=== PATIENT | female | born 1950 | race Caucasian/White ===

== ENCOUNTER → 2017-01-17 | Outpatient (CLI) | payer BC ==
[~2017-01-17] MED LIST: KENALOG-40 IM ONE; LIDOCAINE 2% VIAL SQ ONE
--- NOTE | 2017-01-17 12:41 | DIREP ---
PROCEDURE:FLUOROSCOPIC GUIDANCE NEEDLE PLACEMENT COMPARISON:None. INDICATIONS:OA RIGHT HIP, 0.2 FLUORO TIME, 3.64 mGy TECHNIQUE:Right hip steroid injection was performed in the usual manner. The procedure was explained in detail to the patient, including the associated risks, benefits and alternatives. All of her questions and concerns were addressed. The patient expressed desire to proceed. Informed written consent was obtained. The superior aspect of the right femoral head and neck junction was localized under fluoroscopy. The overlying skin was marked, then prepped and draped in the usual sterile fashion. Time out and final verification was performed. Utilizing 2% lidocaine for local anesthesia, a 22 gauge spinal needle was advanced to the osseous cortex of the right superior femoral head and neck junction. After confirmation of intracapsular location utilizing a test dose of 2 cc Isovue-300, a total of 7 cc solution containing 6 cc lidocaine 2% and 1 cc Kenalog 40 was carefully injected into the joint space. The patient tolerated the procedure well. There were no immediate complications. CONCLUSION: 1. Successful right hip steroid injection as above. Dictated by: Amaury Veliz M.D. On 01/17/2017 at 12:43 PM
== END | disposition home or self-care (01) ==
LOC: RAD 10:33
PROVIDERS: ATTEND Orthopaedic Surgery
DX: M16.11 Unilateral primary osteoarthritis, right hip (principal)
CPT/HCPCS: 20610; 77002; J2001; J3301; Q9967

== ENCOUNTER → 2017-04-04 | Outpatient (CLI) | payer BC ==
--- NOTE | 2017-04-05 11:51 | DIREP ---
PROCEDURE:Right hip FLUOROSCOPIC GUIDANCE NEEDLE PLACEMENT COMPARISON:[facility], , FLUOROSCOPIC GUIDANCE NEEDLE PLACEMENT, 01/17/2017, 11:06 AM. INDICATIONS:OA RIGHT HIP, 8.14 mGy, 0.3 second fluoro TECHNIQUE:Fluoroscopy of the right hip was performed. A total of 0.3 seconds of fluoroscopic time utilized. FINDINGS: Patient was counseled lobe with enter risks, benefits, complications, and alternatives to fluoroscopically guided left hip injection. She consented in a written and verbal fashion. The right hip was marked in the prepped and draped in the normal sterile fashion. 25 gauge needle was used to anesthetize the skin and needle tract. A 20 gauge spinal needle was then used to access the left hip joint space. Iodinated contrast agent was used to confirm the positioning. A cocktail of 40 mg of Kenalog and 6 cc of 2% lidocaine with epinephrine more administered. Total fluoroscopic time 0.3 min. Pain before the procedure: 6/10 Pain after the procedure: 0/10 CONCLUSION:Successful fluoroscopically guided right hip injection Dictated by: Oz Durant MD on 04/05/2017 at 11:48 AM
== END | disposition home or self-care (01) ==
LOC: RAD 13:42
PROVIDERS: ATTEND Orthopaedic Surgery
DX: M16.11 Unilateral primary osteoarthritis, right hip (principal)
CPT/HCPCS: 20610; 77002; Q9967

== ENCOUNTER 2017-08-26 00:21 | Inpatient (IN) | payer MEDICARE, OTHER ==
[2017-08-21 10:42] VITALS: BP 140/78
--- NOTE | 2017-08-21 11:01 | PCM.EKG ---
[facility] Test Date: 2017-08-21 Test Time: 10:52:46 Pat Name: JODY BRADLEY Department: Patient ID: [id number] Room: Gender: F Marine Pilot: AWLVNatasha : 1950 Requested By: ALEXIS WANG Order Number: [id number] Reading MD: Ashley Denny Measurements Intervals [place] Rate: 69 P: 79 FL: 118 QRS: 84 QRSD: 82 T: 78 QT: 438 QTc: 469 Interpretive Statements Normal sinus rhythm Nonspecific ST abnormality LVH NONSPECIFIC T ABNORMALITIES, DIFFUSE LEADS Abnormal ECG No previous ECG available for comparison Electronically Signed On 08-26-2017 10:37:14 SHIFTMAN by Ashley Denny Please click the below link to view image of tracing.
[2017-08-21 11:14] LABS: BASOPHIL # 0.1 10^3/uL (0.0-0.1); BASOPHIL % 0.5 % (0.0-0.2); EOSINOPHIL # 0.1 10^3/uL (0.0-0.2); EOSINOPHIL % 0.9 % (0.0-5.0); HEMOGLOBIN 13.4 g/dL (12.0-15.0); LYMPHOCYTES # 2.5 10^3/uL (1.0-4.8); LYMPHOCYTES % 21.3 % (24.0-44.0); MEAN CELL HGB 32.6 pg (26-34); MEAN CELL HGB CONCENTRATION 32.7 g/dL (33-37); MEAN CORP VOLUME 99.8 fL (78-100); MONOCYTES # 0.8 10^3/uL (0.3-0.8); MONOCYTES % 6.6 % (5.0-12.0); NEUTROPHIL # 8.4 10^3/uL (1.8-7.7); NEUTROPHILS % 70.5 % (41.0-85.0); RED CELL DISTRIBUTION WIDTH 14.4 % (11.5-14.5); WHITE BLOOD CELL 11.9 10^3/uL (4.5-11.0)
[2017-08-21 11:39] LABS: CALCIUM 9.2 mg/dL (8.4-10.5); CARBON DIOXIDE 28.4 mmol/L (20.0-32)
[2017-08-26] VITALS (17 sets, daily range): BP systolic 100–165; BP diastolic 60–117
[~2017-08-26] VITALS: Ht 170.2 cm; Wt 54.0 kg
[~2017-08-26 00:21] MED LIST changes: +AMLO1CAP3 PO; +ATOR10TA PO; +HYDR12.53 PO; -KENALOG-40 IM ONE; -LIDOCAINE 2% VIAL SQ ONE; +MELO15TA24 PO; +PARO20TA4 PO
[2017-08-26] MEDS ORDERED: ANCEF ONE (04:58)
[2017-08-26] MEDS ORDERED: NS 100ML 100 ML IV ONE ×2 (05:13→13:20)
[2017-08-26] MEDS ORDERED: TORADOL ONE (06:40)
[2017-08-26] MEDS ORDERED: ZOFRAN ONE (06:40)
[2017-08-26] MEDS ORDERED: ZEMURON IV ONE ×2 (06:40→17:12)
[2017-08-26] MEDS ORDERED: DECADRON ONE (06:40)
[2017-08-26] MEDS ORDERED: SUBLIMAZE ONE (06:41)
[2017-08-26] MEDS ORDERED: DIPRIVAN IV ONE (06:41)
[2017-08-26] MEDS ORDERED: VERSED ONE (06:41)
[2017-08-26] MEDS ORDERED: NEOSTIGMINE ONE (06:41)
[2017-08-26] MEDS ORDERED: DILAUDID ONE (06:41)
[2017-08-26] MEDS ORDERED: LIDOCAINE 2% VIAL ONE (06:42)
[2017-08-26] MEDS ORDERED: NAROPIN 0.5% 5 MG/ML VIAL ONE (06:42)
--- NOTE | 2017-08-26 11:05 | PCM.HP ---
History of Present Illness Reason for Visit: Right hip pain History of Present Illness 67yo female complains of right hip pain for 1-2 years, and getting progressively worse. She complains of pain and painful crepitation with household ambulation, and night pain. She is very limited in her daily activities. She has tried cortisone injections with temporary relief. She has been taking Tylenol, Mobic, and Tylenol 4 for the pain. Her xrays do show collapse of femoral head consistent with AVN and severe OA. Past Medical History Cardiac: HTN, Hyperlipidemia Psychiatric: Depression Past Surgical History: Other (Hysterectomy, left bunionectomy) Past Social History Smoke: <1 pack per day Alcohol: occassional Review of Systems Musculoskeletal: leg pain (Right hip pain) Allergies: Coded Allergies: No Known Allergies (Unverified , 08/21/17) Scheduled Amlodipine Besylate/Benazepril (Lotrel 5-40 Mg Capsule), 1 CAP PO DAILY, ( Reported) Atorvastatin 10MG (Lipitor 10MG), 1 TAB PO HS, (Reported) Hydrochlorothiazide (Hydrochlorothiazide), 1 CAP PO DAILY, (Reported) Meloxicam (Meloxicam), 1 TAB PO DAILY, (Reported) Paroxetine Hcl (Paroxetine Hcl), 1 TAB PO HS, (Reported) VTE VTE Risk Total Score: >5 VTE Risk Score VTE Risk: Score 0-1 = Low Risk (Aggressive mobilization; early ambulation; no VTE prophylaxis required) Score 2: Moderate Risk (Intermittent/Pneumatic Compression Device OR Lovenox/Heparin/Coumadin) Score 3-4: High Risk (Intermittent/Pneumatic Compression Device AND Lovenox/Heparin/Coumadin) Score > or =5: Highest Risk (Intermittent/Pneumatic Compression Device AND Lovenox/Heparin/Coumadin) VTE VTE Present on Admission: No Currently receiving anticoagul: No VTE Risk Total Score: >5 Exam Vital Signs Vital Signs Date Time Temp Pulse Resp B/P (MAP) Pulse Ox O2 Delivery O2 Flow Rate FiO2 08/21/17 10:42 97.8 73 18 140/78 (98) 97 Room Air General Appearance: Alert, Oriented X3, Cooperative, No acute distress HEENT: Atraumatic Respiratory: Clear to auscultation, Normal air movement Cardiovascular: Regular rate, Normal S1, Normal S2, No murmurs Abdominal: Normal bowel sounds, Soft, No tenderness, No hepatospenomegaly Extremities: No clubbing, No cyanosis, No edema, Normal pulses, Other (Right hip 80 degrees flexion, 10 degrees internal rotation, 30 degrees external rotation, no shortening) Skin: No rash, No breakdown, No lesions Neuro: Normal gait, Normal speech, Strength at 5/5 X4 ext, Normal tone, Sensation intact, Cranial nerves 3-12 NL, Reflexes 2+ Psych/Mental Status: Mental status NL, Mood NL Assessment/Plan Assessment/Plan Assessment/Plan A: OA right hip P: Right total hip arthroplasty Problems: (1) Osteoarthritis of right hip Status: Chronic ICD Code: M16.11 - Unilateral primary osteoarthritis, right hip SNOMED: 168132906610192 (2) HTN (hypertension) Status: Chronic ICD Code: I10 - Essential (primary) hypertension SNOMED: 62224984 (3) Hyperlipidemia Status: Chronic ICD Code: E78.5 - Hyperlipidemia, unspecified SNOMED: 86298487 Patient History: Bone cancer 33 FATHER, , Age:69 FH: lung cancer 33 FATHER, , Age:71 Hypertension 32 MOTHER, , Age:90 No known health problems G8 BROTHER G8 BROTHER 19 CHILD 19 CHILD 19 CHILD No Family History of: Alzheimer's disease Asthma Cerebrovascular disorder Chronic obstructive pulmonary disease Congestive heart failure Diabetes insipidus Diabetes mellitus Parkinson's disease ALEXIS WANG PAC Aug 26, 2017 11:05
[2017-08-26] MEDS: LACTATED RINGERS 1,000 ML IV SCH ×3 (11:10→16:58)
[2017-08-26] MEDS ORDERED: ANCEF 2 GM in NS 100ML 100 ML IV ONE (11:15)
[2017-08-26] MEDS ORDERED: SODIUM CHLORIDE IR ONE (13:19)
[2017-08-26] MEDS ORDERED: NS 3000ML IRR IR ONE (13:19)
[2017-08-26] MEDS ORDERED: NS 250ML 250 ML IV ONE (13:19)
[2017-08-26] MEDS ORDERED: TRANEXAMIC ACID IV ONE ×2 (13:36→15:57)
[2017-08-26] MEDS ORDERED: LACTATED RINGERS 1,000 ML ONE (13:51)
[2017-08-26] MEDS ORDERED: VENTOLIN IH PRN (17:00)
[2017-08-26] MEDS ORDERED: PHENERGAN IV PRN (17:00)
[2017-08-26] MEDS ORDERED: LACTATED RINGERS 1,000 ML IV SCH (17:00)
[2017-08-26] MEDS ORDERED: BENADRYL IV PRN (17:00)
[2017-08-26] MEDS ORDERED: ZOFRAN IV PRN (17:00)
[2017-08-26] MEDS ORDERED: REGLAN IV PRN (17:00)
[2017-08-26] MEDS ORDERED: CEPACOL SORE THROAT LOZENGE MM PRN (17:00)
[2017-08-26] MEDS ORDERED: DILAUDID IV PRN (17:00)
[2017-08-26] MEDS ORDERED: AMBIEN PO PRN (17:00)
--- NOTE | 2017-08-26 17:18 | DIREP ---
PROCEDURE:XRAY HIP MIN 2VW-RT COMPARISON:None. INDICATIONS:postop FINDINGS: BONES:Total right hip arthroplasty. No visible fracture. JOINTS:Normal. SOFT TISSUES:Lateral skin karoline. Surgical drain. Soft tissue gas. OTHER:No additional findings. CONCLUSION:Changes of recent right hip arthroplasty. Dictated by: Abdi Lehman M.D. on 08/26/2017 at 05:17 PM
--- NOTE | 2017-08-26 17:32 | PRM.PN ---
Subjective Subjective Date: Aug 26, 2017 Time: 17:31 Subjective Awake and alert In RR VSS NVM+ Pain ok Stable Patient History: Bone cancer 33 FATHER, , Age:69 FH: lung cancer 33 FATHER, , Age:71 Hypertension 32 MOTHER, , Age:90 No known health problems G8 BROTHER G8 BROTHER 19 CHILD 19 CHILD 19 CHILD No Family History of: Alzheimer's disease Asthma Cerebrovascular disorder Chronic obstructive pulmonary disease Congestive heart failure Diabetes insipidus Diabetes mellitus Parkinson's disease VTE VTE Risk Total Score: >5 VTE Risk Score VTE Risk: Score 0-1 = Low Risk (Aggressive mobilization; early ambulation; no VTE prophylaxis required) Score 2: Moderate Risk (Intermittent/Pneumatic Compression Device OR Lovenox/Heparin/Coumadin) Score 3-4: High Risk (Intermittent/Pneumatic Compression Device AND Lovenox/Heparin/Coumadin) Score > or =5: Highest Risk (Intermittent/Pneumatic Compression Device AND Lovenox/Heparin/Coumadin) Review of Systems Musculoskeletal: leg pain (Right hip pain) Allergies: Coded Allergies: No Known Allergies (Unverified , 08/21/17) Scheduled Amlodipine Besylate/Benazepril (Lotrel 5-40 Mg Capsule), 1 CAP PO DAILY, ( Reported) Atorvastatin 10MG (Lipitor 10MG), 1 TAB PO HS, (Reported) Hydrochlorothiazide (Hydrochlorothiazide), 1 CAP PO DAILY, (Reported) Meloxicam (Meloxicam), 1 TAB PO DAILY, (Reported) Paroxetine Hcl (Paroxetine Hcl), 1 TAB PO HS, (Reported) Objective Vitals and I/O Vital Sign - Last 24 Hours 08/26/17 08/26/17 08/26/17 08/26/17 11:00 11:00 12:55 13:00 Temp 97.8 Pulse 96 86 83 Resp 18 B/P (MAP) 165/96 (119) 125/99 (108) 137/78 (97) Pulse Ox 98 94 97 O2 Delivery Room Air Room Air Room Air Room Air 08/26/17 08/26/17 08/26/17 08/26/17 13:04 16:48 16:48 16:53 Temp 98.9 Pulse 76 90 89 Resp 18 18 B/P (MAP) 138/97 (111) 158/92 (114) 158/92 (114) Pulse Ox 97 96 97 O2 Delivery Room Air Nasal Canula Nasal Canula O2 Flow Rate 3 08/26/17 16:58 Pulse 89 Resp 18 B/P (MAP) 152/81 (104) Pulse Ox 97 O2 Delivery Nasal Canula Medication Reconciliation Scheduled Amlodipine Besylate/Benazepril (Lotrel 5-40 Mg Capsule), 1 CAP PO DAILY, ( Reported) Atorvastatin 10MG (Lipitor 10MG), 1 TAB PO HS, (Reported) Hydrochlorothiazide (Hydrochlorothiazide), 1 CAP PO DAILY, (Reported) Meloxicam (Meloxicam), 1 TAB PO DAILY, (Reported) Paroxetine Hcl (Paroxetine Hcl), 1 TAB PO HS, (Reported) Course Blood Pressure Systolic: 152 Blood Pressure Diastolic: 81 Blood Pressure Mean: 104 Assessment/Plan Assessment/Plan Patient History: Bone cancer 33 FATHER, , Age:69 FH: lung cancer 33 FATHER, , Age:71 Hypertension 32 MOTHER, , Age:90 No known health problems G8 BROTHER G8 BROTHER 19 CHILD 19 CHILD 19 CHILD No Family History of: Alzheimer's disease Asthma Cerebrovascular disorder Chronic obstructive pulmonary disease Congestive heart failure Diabetes insipidus Diabetes mellitus Parkinson's disease BROOKS LEONARDO MD Aug 26, 2017 17:32
[2017-08-26] MEDS: ULTRAM PO PRN (19:08)
[2017-08-26] MEDS: ULTRAM PO SCH (20:00)
[2017-08-26 20:18] LABS: HEMOGLOBIN 10.4 g/dL (12.0-15.0); MEAN CELL HGB 32.3 pg (26-34); MEAN CELL HGB CONCENTRATION 31.3 g/dL (33-37); MEAN CORP VOLUME 103.1 fL (78-100); MEAN PLATELET VOLUME 8.6 fL (7.8-11.0); RED CELL DISTRIBUTION WIDTH 14.4 % (11.5-14.5); WHITE BLOOD CELL 20.7 10^3/uL (4.5-11.0)
[2017-08-26] MEDS ORDERED: MORPHINE SULFATE ONE (21:03)
[2017-08-26] MEDS: CELEBREX PO SCH (21:05)
[2017-08-26] MEDS: MORPHINE SULFATE IV PRN (21:06)
[2017-08-26] MEDS: ANCEF 2 GM/D5W 50ML IV SCH (21:07)
--- NOTE | 2017-08-26 21:26 | OPH ---
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 OPERATIVE PROCEDURE: Right total hip arthroplasty using a Medacta AMIS, size 54 acetabular cup, size 2 AMIS stem cemented, 36 mm ceramic head, making it a [id number] total hip arthroplasty. SURGEON: Curt Hawthorne MD ANESTHESIA: General endotracheal BLOOD LOSS: 500 mL DESCRIPTION OF INDICATIONS: The patient is a 67-year-old female. She has had right hip pain for the last 2 years and getting progressively worse. She complained of severe pain and crepitation with just household ambulation. She also had severe night pain and was very limited in her daily activities. She has been on Mobic as well as Tylenol for the pain. The patient's exam showed that she had only 80 degrees of flexion of the hip. She had 10 degrees of internal rotation and 30 degrees of external rotation. There was very severe pain with any attempts of range of motion. The patient's x-rays showed that she has had a collapse of the femoral head superiorly and laterally with stage IV, DJD. She was taken to the operating room today for a right total hip arthroplasty for pain relief. DESCRIPTION OF PROCEDURE: This patient was placed on the operating table in the supine position. General endotracheal anesthesia was induced without difficulty. The patient had the right foot and ankle well padded and placed in the traction boot. The right foot and ankle were then attached to the traction unit. The patient had the right lower extremity sterilely prepped and draped. An anterior incision was made about the hip. The incision was taken through the skin and the subcutaneous tissues. Bleeding was controlled with cautery. The tensor fascia was opened in line with the skin incision. The muscle belly was then retracted posteriorly and laterally. The rectus fascia was opened and the rectus muscle was retracted medially. The patient then had the circumflex vessels identified and coagulated with the Aquamantys device. The fatpad over the anterior capsule was then opened and retracted proximally and laterally. A femoral neck cut was then made with a power saw and the head was removed with a corkscrew device. The labrum was then excised. The fovea was cleared of any soft tissue and any bleeding was controlled with the Aquamantys device. The posterior capsule and the piriformis tendon were released. The acetabulum was then sequentially reamed up to a size 54. The patient had a 54 trial placed. The general alignment was felt to be satisfactory, however, I felt the need for additional stabilization, so we put a single cancellous screws superiorly and posteriorly. Intraoperative C-arm views showed satisfactory alignment of the acetabulum and satisfactory screw positioning. The patient then had the central hole in the acetabular component filled with a small screw. The trial liner was then placed in the acetabular component. The hip was placed in maximal external rotation and hyperextension. The canal was opened with a curette. The opening rasp was then used to open the proximal femur. We sequentially rasped the femur up to a size 2. The patient then had a trial reduction done with a 2 femur; initially a short neck and then a neutral neck length; the neutral neck length had better stability. The C-arm views showed what appeared to be a satisfactory alignment and satisfactory sizing of the components. The trial components were then removed. The acetabular liner was then impacted into position. The patient then had the canal cleared off of any cancellous bone with the irrigating bone brush. A cement restrictor was placed at 13 cm. The canal was then dried and then the cement was introduced. The cement was packed and the stem was cemented into position. The excess cement was then removed with a curette. Once the cement had hardened and the excess cement was removed. The 36 mm neutral neck length head was impacted onto the Mukherjee taper neck. The hip was reduced, and again, there was excellent stability. The patient had the wounds irrigated with Betadine. The capsule was closed with #2 PDS in an interrupted manner, the IT band closed with a #2 PDS barbed in a running manner, the subQ closed with a 2-0 Monocryl in a running manner, and then the skin was closed with karoline. A Prevena dressing was applied. The patient was extubated in the operating room and sent to recovery in a stable condition. Curt Hawthorne MD DR: MELIZA/martin JOB# [id number]
[2017-08-27] VITALS: BP 109/63
[2017-08-27] MEDS ORDERED: ANCEF ONE (03:42)
[2017-08-27] MEDS ORDERED: NS 100ML 100 ML IV ONE (03:43)
[2017-08-27] MEDS: ULTRAM PO SCH ×6 (04:00→19:17)
[2017-08-27] MEDS: ULTRAM PO PRN ×2 (04:04)
[2017-08-27 04:39] VITALS: BP 112/68
[2017-08-27] MEDS: ANCEF 2 GM/D5W 50ML IV SCH ×2 (05:17→14:00)
[2017-08-27 05:52] LABS: HEMOGLOBIN 9.1 g/dL (12.0-15.0); MEAN CELL HGB 32.7 pg (26-34); MEAN CELL HGB CONCENTRATION 32.2 g/dL (33-37); MEAN CORP VOLUME 101.8 fL (78-100); MEAN PLATELET VOLUME 9.4 fL (7.8-11.0); RED CELL DISTRIBUTION WIDTH 14.2 % (11.5-14.5)
[2017-08-27] MEDS: COLACE PO SCH (08:20)
[2017-08-27] MEDS: PEPCID PO SCH (08:21)
[2017-08-27] MEDS: XARELTO PO SCH (08:21)
[2017-08-27] MEDS: CELEBREX PO SCH ×2 (08:21→20:52)
--- NOTE | 2017-08-27 08:31 | PRM.PN ---
Subjective Subjective Date: Aug 27, 2017 Time: 08:30 Subjective Awake and alert Some pain this morning, better with Tramadol Afebrile, VSS H/H 05/09 M-N-V intact Dressing dry and intact Patient History: Bone cancer 33 FATHER, , Age:69 FH: lung cancer 33 FATHER, , Age:71 Hypertension 32 MOTHER, , Age:90 No known health problems G8 BROTHER G8 BROTHER 19 CHILD 19 CHILD 19 CHILD No Family History of: Alzheimer's disease Asthma Cerebrovascular disorder Chronic obstructive pulmonary disease Congestive heart failure Diabetes insipidus Diabetes mellitus Parkinson's disease VTE VTE Risk Total Score: >5 VTE Risk Score VTE Risk: Score 0-1 = Low Risk (Aggressive mobilization; early ambulation; no VTE prophylaxis required) Score 2: Moderate Risk (Intermittent/Pneumatic Compression Device OR Lovenox/Heparin/Coumadin) Score 3-4: High Risk (Intermittent/Pneumatic Compression Device AND Lovenox/Heparin/Coumadin) Score > or =5: Highest Risk (Intermittent/Pneumatic Compression Device AND Lovenox/Heparin/Coumadin) Review of Systems Musculoskeletal: leg pain (Right hip pain) Allergies: Coded Allergies: No Known Allergies (Unverified , 08/21/17) Scheduled Amlodipine Besylate/Benazepril (Lotrel 5-40 Mg Capsule), 1 CAP PO DAILY, ( Reported) Atorvastatin 10MG (Lipitor 10MG), 1 TAB PO HS, (Reported) Hydrochlorothiazide (Hydrochlorothiazide), 1 CAP PO DAILY, (Reported) Meloxicam (Meloxicam), 1 TAB PO DAILY, (Reported) Paroxetine Hcl (Paroxetine Hcl), 1 TAB PO HS, (Reported) Objective Vitals and I/O Vital Sign - Last 24 Hours 08/26/17 08/26/17 08/26/17 08/26/17 11:00 11:00 12:55 13:00 Temp 97.8 Pulse 96 86 83 Resp 18 B/P (MAP) 165/96 (119) 125/99 (108) 137/78 (97) Pulse Ox 98 94 97 O2 Delivery Room Air Room Air Room Air Room Air 08/26/17 08/26/17 08/26/17 08/26/17 13:04 16:48 16:48 16:53 Temp 98.9 Pulse 76 90 89 Resp 18 18 18 B/P (MAP) 138/97 (111) 158/92 (114) 158/92 (114) Pulse Ox 97 96 97 O2 Delivery Room Air Nasal Canula Nasal [place]ula O2 Flow Rate 3 08/26/17 08/26/17 08/26/17 08/26/17 16:58 17:08 17:13 17:18 Temp 98.9 Pulse 89 93 95 92 Resp 18 18 18 18 B/P (MAP) 152/81 (104) 153/117 (129) 137/90 (106) 137/87 (104) Pulse Ox 97 97 94 95 O2 Delivery Nasal Canula Nasal Canula Nasal Canula Nasal Canula 08/26/17 08/26/17 08/26/17 08/26/17 17:23 17:28 17:33 17:38 Temp 98.9 99.4 Pulse 94 86 85 86 Resp 18 18 18 18 B/P (MAP) 158/93 (114) 162/70 (100) 134/77 (96) 162/74 (103) Pulse Ox 96 97 97 97 O2 Delivery Nasal [place]ula Nasal Canula Nasal Canula Nasal Canula 08/26/17 08/26/17 08/26/17 08/26/17 17:43 17:48 20:01 20:21 Temp 98.4 Pulse 81 76 79 Resp 18 18 18 B/P (MAP) 134/68 (90) 134/68 (90) 100/60 (73) Pulse Ox 98 98 94 O2 Delivery Nasal [place] Nasal [place]ula Room Air Nasal Cannula O2 Flow Rate 2.00 08/26/17 08/26/17 08/27/17 08/27/17 20:24 20:25 00:00 02:04 Temp 98.1 Pulse 79 73 Resp 18 15 18 B/P (MAP) 109/63 (78) Pulse Ox 94 97 99 O2 Delivery Nasal Cannula Room Air Nasal Cannula O2 Flow Rate 2.00 08/27/17 04:39 Temp 98.0 Pulse 67 Resp 18 B/P (MAP) 112/68 (83) Pulse Ox 99 O2 Delivery Nasal [place]ula Intake and Output 08/26/17 08/26/17 08/27/17 15:00 23:00 07:00 Intake Total 1100 ml 5475 ml 450 ml Output Total 630 ml 800 ml Balance 1100 ml 4845 ml -350 ml Medication Reconciliation Scheduled Amlodipine Besylate/Benazepril (Lotrel 5-40 Mg Capsule), 1 CAP PO DAILY, ( Reported) Atorvastatin 10MG (Lipitor 10MG), 1 TAB PO HS, (Reported) Hydrochlorothiazide (Hydrochlorothiazide), 1 CAP PO DAILY, (Reported) Meloxicam (Meloxicam), 1 TAB PO DAILY, (Reported) Paroxetine Hcl (Paroxetine Hcl), 1 TAB PO HS, (Reported) Course Blood Pressure Systolic: 112 Blood Pressure Diastolic: 68 Blood Pressure Mean: 83 Assessment/Plan Assessment/Plan Patient History: Bone cancer 33 FATHER, , Age:69 FH: lung cancer 33 FATHER, , Age:71 Hypertension 32 MOTHER, , Age:90 No known health problems G8 BROTHER G8 BROTHER 19 CHILD 19 CHILD 19 CHILD No Family History of: Alzheimer's disease Asthma Cerebrovascular disorder Chronic obstructive pulmonary disease Congestive heart failure Diabetes insipidus Diabetes mellitus Parkinson's disease Plan Continue with PT this morning Recheck CBC tomorrow ALEXIS WANG PAC Aug 27, 2017 08:31
[2017-08-27 08:39] VITALS: BP 101/54
[2017-08-27] MEDS: HYDROCHLOROTHIAZIDE PO SCH (10:30)
[2017-08-27] MEDS: NORVASC PO SCH (11:36)
[2017-08-27] MEDS: LOTENSIN PO SCH (11:37)
[2017-08-27] MEDS ORDERED: MORPHINE SULFATE ONE ×2 (12:32→20:47)
[2017-08-27] MEDS: MORPHINE SULFATE IV PRN ×2 (12:37→21:00)
[2017-08-27 12:41] VITALS: BP 118/64
[2017-08-27 17:35] VITALS: BP 109/50
[2017-08-27 20:49] VITALS: BP 114/52
[2017-08-27] MEDS ORDERED: PAXIL PO SCH (21:00)
[2017-08-27] MEDS ORDERED: LIPITOR PO SCH (21:00)
[2017-08-28] MEDS: ULTRAM PO SCH ×6 (00:08→16:00)
[2017-08-28 00:26] VITALS: BP 127/65
[2017-08-28] MEDS: ULTRAM PO PRN ×4 (04:05→16:53)
[2017-08-28 04:19] VITALS: BP 127/54
[2017-08-28 05:46] LABS: HEMOGLOBIN 8.3 g/dL (12.0-15.0); MEAN CELL HGB CONCENTRATION 31.2 g/dL (33-37); MEAN CORP VOLUME 102.7 fL (78-100); MEAN PLATELET VOLUME 9.3 fL (7.8-11.0); RED CELL DISTRIBUTION WIDTH 14.4 % (11.5-14.5); WHITE BLOOD CELL 9.7 10^3/uL (4.5-11.0)
[2017-08-28 08:21] VITALS: BP 120/52
--- NOTE | 2017-08-28 08:32 | PRM.PN ---
Subjective Subjective Date: Aug 28, 2017 Time: 08:31 Subjective Awake and alert Pain ok Up in room independently with walker Dressing dry and intact M-N-V intact Afebrile, VSS H/H 04/06, post op anemia expected due to surgical blood loss Patient History: Bone cancer 33 FATHER, , Age:71 FH: lung cancer 33 FATHER, , Age:71 Hypertension 32 MOTHER, , Age:90 No known health problems G8 BROTHER G8 BROTHER 19 CHILD 19 CHILD 19 CHILD No Family History of: Alzheimer's disease Asthma Cerebrovascular disorder Chronic obstructive pulmonary disease Congestive heart failure Diabetes insipidus Diabetes mellitus Parkinson's disease VTE VTE Risk Total Score: >5 VTE Risk Score VTE Risk: Score 0-1 = Low Risk (Aggressive mobilization; early ambulation; no VTE prophylaxis required) Score 2: Moderate Risk (Intermittent/Pneumatic Compression Device OR Lovenox/Heparin/Coumadin) Score 3-4: High Risk (Intermittent/Pneumatic Compression Device AND Lovenox/Heparin/Coumadin) Score > or =5: Highest Risk (Intermittent/Pneumatic Compression Device AND Lovenox/Heparin/Coumadin) Review of Systems Musculoskeletal: leg pain (Right hip pain) Allergies: Coded Allergies: No Known Allergies (Unverified , 08/21/17) Scheduled Amlodipine Besylate/Benazepril (Lotrel 5-40 Mg Capsule), 1 CAP PO DAILY, ( Reported) Atorvastatin 10MG (Lipitor 10MG), 1 TAB PO HS, (Reported) Hydrochlorothiazide (Hydrochlorothiazide), 1 CAP PO DAILY, (Reported) Meloxicam (Meloxicam), 1 TAB PO DAILY, (Reported) Paroxetine Hcl (Paroxetine Hcl), 1 TAB PO HS, (Reported) Objective Vitals and I/O Vital Sign - Last 24 Hours 08/27/17 08/27/17 08/27/17 08/27/17 08:39 09:55 10:30 10:44 Temp 99.0 Pulse 77 72 Resp 17 17 B/P (MAP) 101/54 (70) 132/67 Pulse Ox 94 95 O2 Delivery Nasal [place] Nasal Cannula Room Air O2 Flow Rate 2.00 FiO2 21 08/27/17 08/27/17 08/27/17 08/27/17 11:36 11:37 12:41 17:35 Temp 98.5 98.0 Pulse 72 77 73 Resp 17 17 B/P (MAP) 132/67 132/67 118/64 (82) 109/50 (69) Pulse Ox 94 94 O2 Delivery Room Air Room Air 08/27/17 08/27/17 08/27/17 08/28/17 20:44 20:44 20:49 00:26 Temp 98.3 98.1 Pulse 68 73 71 Resp 18 18 B/P (MAP) 114/52 (72) 127/65 (85) Pulse Ox 92 93 95 O2 Delivery Room Air Room Air Room Air Room Air 08/28/17 08/28/17 04:19 08:21 Temp 97.5 98.4 Pulse 68 64 Resp 18 17 B/P (MAP) 127/54 (78) 120/52 (74) Pulse Ox 92 93 O2 Delivery Room Air Room Air Intake and Output 08/27/17 08/27/17 08/28/17 15:00 23:00 07:00 Intake Total 600 ml Output Total 600 ml 1350 ml 100 ml Balance -600 ml -750 ml -100 ml Medication Reconciliation Scheduled Amlodipine Besylate/Benazepril (Lotrel 5-40 Mg Capsule), 1 CAP PO DAILY, ( Reported) Atorvastatin 10MG (Lipitor 10MG), 1 TAB PO HS, (Reported) Hydrochlorothiazide (Hydrochlorothiazide), 1 CAP PO DAILY, (Reported) Meloxicam (Meloxicam), 1 TAB PO DAILY, (Reported) Paroxetine Hcl (Paroxetine Hcl), 1 TAB PO HS, (Reported) Course Blood Pressure Systolic: 120 Blood Pressure Diastolic: 52 Blood Pressure Mean: 74 Assessment/Plan Assessment/Plan Patient History: Bone cancer 33 FATHER, , Age:69 FH: lung cancer 33 FATHER, , Age:69 Hypertension 32 MOTHER, , Age:90 No known health problems G8 BROTHER G8 BROTHER 19 CHILD 19 CHILD 19 CHILD No Family History of: Alzheimer's disease Asthma Cerebrovascular disorder Chronic obstructive pulmonary disease Congestive heart failure Diabetes insipidus Diabetes mellitus Parkinson's disease Plan Continue with PT today Recheck CBC tomorrow ALEXIS WANG PAC Aug 28, 2017 08:32
[2017-08-28] MEDS: PEPCID PO SCH (08:46)
[2017-08-28] MEDS: NORVASC PO SCH (08:46)
[2017-08-28] MEDS: XARELTO PO SCH (08:47)
[2017-08-28] MEDS: LOTENSIN PO SCH (08:47)
[2017-08-28] MEDS: COLACE PO SCH (08:49)
[2017-08-28] MEDS: HYDROCHLOROTHIAZIDE PO SCH (08:49)
[2017-08-28] MEDS: CELEBREX PO SCH (08:49)
[2017-08-28] MEDS: LACTATED RINGERS 1,000 ML IV SCH (11:15)
[2017-08-28 12:35] VITALS: BP 128/65
[2017-08-28 15:17] VITALS: BP 123/64
[2017-08-28 15:18] LABS: BASOPHIL % 0.3 % (0.0-0.2); EOSINOPHIL # 0.1 10^3/uL (0.0-0.2); EOSINOPHIL % 1.2 % (0.0-5.0); HEMOGLOBIN 8.7 g/dL (12.0-15.0); LYMPHOCYTES # 3.2 10^3/uL (1.0-4.8); LYMPHOCYTES % 30.5 % (24.0-44.0); MEAN PLATELET VOLUME 9.2 fL (7.8-11.0); MONOCYTES # 1.1 10^3/uL (0.3-0.8); MONOCYTES % 10.3 % (5.0-12.0); NEUTROPHILS % 57.6 % (41.0-85.0); RED CELL DISTRIBUTION WIDTH 14.3 % (11.5-14.5); WHITE BLOOD CELL 10.5 10^3/uL (4.5-11.0)
--- NOTE | 2017-08-28 16:26 | PRM.PN ---
Subjective Subjective Date: Aug 28, 2017 Time: 16:24 Subjective Awake and alert Aquacell dressing dry and intact H/H 04/07 Up in room independently with walker Patient History: Bone cancer 33 FATHER, , Age:69 FH: lung cancer 33 FATHER, , Age:71 Hypertension 32 MOTHER, , Age:90 No known health problems G8 BROTHER G8 BROTHER 19 CHILD 19 CHILD 19 CHILD No Family History of: Alzheimer's disease Asthma Cerebrovascular disorder Chronic obstructive pulmonary disease Congestive heart failure Diabetes insipidus Diabetes mellitus Parkinson's disease VTE VTE Risk Total Score: >5 VTE Risk Score VTE Risk: Score 0-1 = Low Risk (Aggressive mobilization; early ambulation; no VTE prophylaxis required) Score 2: Moderate Risk (Intermittent/Pneumatic Compression Device OR Lovenox/Heparin/Coumadin) Score 3-4: High Risk (Intermittent/Pneumatic Compression Device AND Lovenox/Heparin/Coumadin) Score > or =5: Highest Risk (Intermittent/Pneumatic Compression Device AND Lovenox/Heparin/Coumadin) Review of Systems Musculoskeletal: leg pain (Right hip pain) Allergies: Coded Allergies: No Known Allergies (Unverified , 08/21/17) Scheduled Amlodipine Besylate/Benazepril (Lotrel 5-40 Mg Capsule), 1 CAP PO DAILY, ( Reported) Atorvastatin 10MG (Lipitor 10MG), 1 TAB PO HS, (Reported) Hydrochlorothiazide (Hydrochlorothiazide), 1 CAP PO DAILY, (Reported) Meloxicam (Meloxicam), 1 TAB PO DAILY, (Reported) Paroxetine Hcl (Paroxetine Hcl), 1 TAB PO HS, (Reported) Objective Vitals and I/O Vital Sign - Last 24 Hours 08/27/17 08/27/17 08/27/17 08/27/17 17:35 20:44 20:44 20:49 Temp 98.0 98.3 Pulse 73 68 73 Resp B/P (MAP) 109/50 (69) 114/52 (72) Pulse Ox 94 92 93 O2 Delivery Room Air Room Air Room Air Room Air 08/28/17 08/28/17 08/28/17 08/28/17 00:26 04:19 08:21 08:46 Temp 98.1 97.5 98.4 Pulse 71 68 64 64 Resp 17 B/P (MAP) 127/65 (85) 127/54 (78) 120/52 (74) 120/52 Pulse Ox 95 92 93 O2 Delivery Room Air Room Air Room Air 08/28/17 08/28/17 08/28/17 08/28/17 08:47 08:49 12:35 15:01 Temp 97.6 Pulse 67 68 Resp 16 16 B/P (MAP) 120/52 120/52 128/65 (86) Pulse Ox 93 92 O2 Delivery Room Air Room Air FiO2 21 08/28/17 15:17 Temp 97.8 Pulse 67 Resp 16 B/P (MAP) 123/64 (83) Pulse Ox 96 O2 Delivery Room Air Intake and Output 08/27/17 08/27/17 08/28/17 15:00 23:00 07:00 Intake Total 600 ml Output Total 600 ml 1350 ml 100 ml Balance -600 ml -750 ml -100 ml Medication Reconciliation Scheduled Amlodipine Besylate/Benazepril (Lotrel 5-40 Mg Capsule), 1 CAP PO DAILY, ( Reported) Atorvastatin 10MG (Lipitor 10MG), 1 TAB PO HS, (Reported) Hydrochlorothiazide (Hydrochlorothiazide), 1 CAP PO DAILY, (Reported) Meloxicam (Meloxicam), 1 TAB PO DAILY, (Reported) Paroxetine Hcl (Paroxetine Hcl), 1 TAB PO HS, (Reported) Course Blood Pressure Systolic: 123 Blood Pressure Diastolic: 64 Blood Pressure Mean: 83 Assessment/Plan Assessment/Plan Patient History: Bone cancer 33 FATHER, , Age:71 FH: lung cancer 33 FATHER, , Age:71 Hypertension 32 MOTHER, , Age:90 No known health problems G8 BROTHER G8 BROTHER 19 CHILD 19 CHILD 19 CHILD No Family History of: Alzheimer's disease Asthma Cerebrovascular disorder Chronic obstructive pulmonary disease Congestive heart failure Diabetes insipidus Diabetes mellitus Parkinson's disease Plan Will d/c home today Continue to WBAT on right with walker Prescription written for Tramadol Advised to take ASA 325mg BID x 6 weeks Appt. in office on Saturday ALEXIS WANG PAC Aug 28, 2017 16:26
[2017-08-28] MEDS ORDERED: ASPI325T14 PO (16:28)
[2017-08-28] MEDS ORDERED: TRAM50TA PO (16:28)
[2017-08-28 17:59] VITALS: BP 123/64
--- NOTE | 2017-08-30 20:43 | DSH ---
DATE OF DISCHARGE: 08/28/2017 ADMITTING DIAGNOSIS: Avascular necrosis about the right femoral head. OTHER DIAGNOSES: Include hypertension, hyperlipidemia and depression. DISCHARGE DIAGNOSIS: Avascular necrosis about the right femoral head. OPERATIVE DATE: 08/26/2017. PROCEDURE PERFORMED: Right total hip arthroplasty. CONSULTATIONS: With Dr. Veliz. SUMMARY OF ADMISSION: This is a 67-year-old female who has complained of right hip pain for the last 2 years, which has just gotten progressively worse. She has failed conservative therapy and she was taken to the operating room on 08/26/2017 for right total hip arthroplasty. The patient tolerated the procedure very well. Postoperatively, she has been awake and alert. Her vital signs have been stable. She has been on a regular diet and tolerating it well. She has had physical therapy and occupational therapy while in the hospital. Currently, she is independent with transfers as well as with ambulation with the walker. Her pain has been controlled with tramadol. She has also been on Xarelto 10 mg once daily as well as foot pumps, SCDs and early ambulation for DVT prophylaxis. On 08/28/2017, she continued to do well with physical therapy and occupational therapy. Her wound appeared benign and Aquacel dressing was placed. She will be discharged on 08/28/2017 to her home. She will continue to weightbear as tolerated on that right side with a walker. She was given a prescription for tramadol. She was advised to take aspirin 325 mg twice a day for 6 weeks and she will follow up in the clinic this coming up Saturday. NAVEED Hayes DR: VLADIMIR/martin JOB# [id number]
== END 2017-08-28 17:15 | disposition home health service (06) | DRG 470 ==
LOC: MS 00:21 → UNDODISIN 08-28 12:10
PROVIDERS: ADMIT Orthopaedic Surgery; ATTEND Orthopaedic Surgery
PROC: 0SR9049 Replacement of Right Hip Joint with Ceramic on Polyethylene Synthetic Substitute, Cemented, Open Approach (ICD-10-PCS; principal; 2017-08-26 13:58)
DX: M16.11 Unilateral primary osteoarthritis, right hip (principal); M87.851 Other osteonecrosis, right femur; D62 Acute posthemorrhagic anemia; E78.5 Hyperlipidemia, unspecified; I10 Essential (primary) hypertension; F17.210 Nicotine dependence, cigarettes, uncomplicated; F32.9 Major depressive disorder, single episode, unspecified; Z90.710 Acquired absence of both cervix and uterus
CPT/HCPCS: 36415; 64447; 73502; 76000; 80053; 85025; 85027; 87070; 93005; 97161; 97165; A4338; J0690; J1100; J1170; J1885; J2001; J2250; J2270; J2405; J2550; J2795; J3010; J3490; J7030; J7050; J7120; 97110-GP; 97116-GP; 97535-GO; A9270; C1776; G8978-CJ; G8979-CI; G8987; G8988; J2710; J8499

== ENCOUNTER 2018-06-16 00:06 | Inpatient (IN) | payer MEDICARE, OTHER ==
[2018-06-11 14:00] VITALS: BP 125/92
--- NOTE | 2018-06-11 15:34 | PCM.EKG ---
[facility] Test Date: 2018-06-11 Test Time: 14:19:49 Pat Name: JODY BRADLEY Department: Room: Gender: F Fitness And Wellness Coordinator: AWLVNatasha : 1950 Requested By: BROOKS LEONARDO Order Number: [id number] Reading MD: Domenico Dodson Measurements Intervals [place] Rate: 76 P: 81 OR: 116 QRS: 85 QRSD: 80 T: 63 QT: 408 QTc: 459 Interpretive Statements Normal sinus rhythm Nonspecific ST abnormality Abnormal ECG Compared to ECG 08/21/2017 10:52:46 Left ventricular hypertrophy no longer present T-wave abnormality no longer present ST (T wave) deviation still present Electronically Signed On 06-12-2018 11:22:59 CDT by Domenico Dodson Please click the below link to view image of tracing.
[2018-06-11 15:51] LABS: BASOPHIL # 0.1 10^3/uL (0.0-0.1); BASOPHIL % 0.5 % (0.0-0.2); EOSINOPHIL # 0.2 10^3/uL (0.0-0.2); EOSINOPHIL % 1.8 % (0.0-5.0); HEMOGLOBIN 15.1 g/dL (12.0-15.0); LYMPHOCYTES # 2.7 10^3/uL (1.0-4.8); MEAN CELL HGB CONCENTRATION 33.6 g/dL (33-37); MEAN PLATELET VOLUME 9.8 fL (7.8-11.0); MONOCYTES # 0.7 10^3/uL (0.3-0.8); MONOCYTES % 7.1 % (5.0-12.0); NEUTROPHIL # 6.6 10^3/uL (1.8-7.7); NEUTROPHILS % 64.4 % (41.0-85.0); RED CELL DISTRIBUTION WIDTH 13.6 % (11.5-14.5); WHITE BLOOD CELL 10.3 10^3/uL (4.5-11.0)
[2018-06-11 16:15] LABS: CALCIUM 10.1 mg/dL (8.4-10.5); CARBON DIOXIDE 23.9 mmol/L (20.0-32)
[~2018-06-16] VITALS: Ht 170.2 cm; Wt 55.6 kg
[2018-06-16] VITALS (10 sets, daily range): BP systolic 110–179; BP diastolic 62–92
[~2018-06-16 00:06] MED LIST changes: +ASPI325T14 PO; +TRAM50TA PO
[2018-06-16] MEDS ORDERED: LACTATED RINGERS 1,000 ML ONE ×2 (05:14→08:50)
[2018-06-16] MEDS ORDERED: NS 100ML 100 ML IV ONE ×3 (05:14→09:24)
[2018-06-16] MEDS ORDERED: ANCEF ONE (05:14)
[2018-06-16] MEDS ORDERED: NEOSTIGMINE ONE (08:48)
[2018-06-16] MEDS ORDERED: DECADRON ONE (08:48)
[2018-06-16] MEDS ORDERED: ZOFRAN ONE (08:48)
[2018-06-16] MEDS ORDERED: LIDOCAINE 2% VIAL ONE (08:48)
[2018-06-16] MEDS ORDERED: VERSED ONE (08:49)
[2018-06-16] MEDS ORDERED: SUBLIMAZE ONE (08:49)
[2018-06-16] MEDS ORDERED: QUELICIN ONE (08:49)
[2018-06-16] MEDS ORDERED: ZEMURON IV ONE (08:49)
[2018-06-16] MEDS ORDERED: NAROPIN 0.5% 5 MG/ML VIAL ONE (08:50)
[2018-06-16] MEDS ORDERED: DIPRIVAN IV ONE (08:50)
[2018-06-16] MEDS ORDERED: CLONIDINE 1,000 MCG/10 ML VIAL EP ONE (08:51)
[2018-06-16] MEDS: LACTATED RINGERS 1,000 ML IV SCH ×4 (09:10→23:55)
[2018-06-16] MEDS ORDERED: NAROPIN 0.2% 40 MG/20 ML VIAL ONE (09:23)
[2018-06-16] MEDS ORDERED: NS 3000ML IRR IR ONE (09:24)
[2018-06-16] MEDS ORDERED: NS 250ML 250 ML IV ONE (09:24)
[2018-06-16] MEDS ORDERED: SODIUM CHLORIDE IR ONE (09:24)
[2018-06-16] MEDS ORDERED: NEURONTIN PO SCH (10:00)
[2018-06-16] MEDS ORDERED: SUBLIMAZE IV PRN (10:00)
[2018-06-16] MEDS ORDERED: PHENERGAN IV PRN (10:00)
[2018-06-16] MEDS ORDERED: BENADRYL IV PRN (10:00)
[2018-06-16] MEDS ORDERED: DEMEROL IV PRN (10:00)
[2018-06-16] MEDS ORDERED: TYLENOL PO SCH (10:00)
[2018-06-16] MEDS ORDERED: DILAUDID IV PRN (10:00)
[2018-06-16] MEDS ORDERED: CELEBREX PO SCH ×2 (10:00→21:00)
[2018-06-16] MEDS ORDERED: TRANEXAMIC ACID IV ONE (10:58)
[2018-06-16] MEDS ORDERED: DILAUDID ONE (13:37)
[2018-06-16] MEDS ORDERED: PHENERGAN ONE (13:52)
[2018-06-16] MEDS ORDERED: DEMEROL ONE (13:52)
[2018-06-16] MEDS ORDERED: MORPHINE SULFATE IV PRN (14:00)
[2018-06-16] MEDS ORDERED: LACTATED RINGERS 1,000 ML IV SCH (14:00)
[2018-06-16] MEDS ORDERED: ANCEF 2 GM/D5W 50ML IV SCH (14:00)
[2018-06-16] MEDS ORDERED: CEPACOL SORE THROAT LOZENGE MM PRN (14:00)
--- NOTE | 2018-06-16 14:14 | HPH ---
ADMIT DATE: 06/16/2018 CHIEF COMPLAINT: Painful left hip. HISTORY OF PRESENT ILLNESS: The patient is a 67-year-old female who has had pain about the left hip for several years secondary to osteoarthritis. It has gotten worse in the last year. She complained of a lot of groin and thigh pain. She complains of limping and giving way about the left hip. She has pain with household ambulation as well as night pain. She takes meloxicam as well as Tylenol No. 3 and tramadol for the pain. She has had previous successful right total hip arthroplasty approximately 1 year ago. HOME MEDICATIONS: Include Tylenol No. 3, meloxicam, tramadol, Lotrel 5/40 mg once a day, Lipitor, Microzide 12.5 mg once a day. PAST MEDICAL HISTORY: Include hypertension. PAST SURGICAL HISTORY: Right total hip arthroplasty, hysterectomy. ALLERGIES: The patient has no known drug allergies. SOCIAL HISTORY: The patient lives with her family. She smokes about a half pack of cigarettes a day, drinks on a rare basis. FAMILY HISTORY: Positive for cancer of unknown type as well as hypertension. PHYSICAL EXAMINATION: GENERAL: Shows a 5 feet and 7 inches, 110 pounds, white female, in no acute distress. HEENT: Within normal limits for her age. CHEST: Clear to auscultation. HEART: Regular rate and rhythm, no murmur. ABDOMEN: Soft, nontender, good bowel sounds. EXTREMITIES: Left hip has approximately 90 degrees of flexion. Her external rotation is 20. She has no internal rotation. There is no shortening. NEUROLOGICAL: The patient is awake and alert. She is oriented x 3. Her cranial nerves 2-12 are grossly intact. She has 5/5 strength in all muscle groups of both upper and lower extremities. IMAGING STUDIES: The x-rays about the left hip show that she is circumferentially [id number] about the left hip. ASSESSMENT: Osteoarthritis, left hip. OTHER DIAGNOSIS: Include hypertension. PLAN: The patient is being admitted for left total hip arthroplasty. The risks and hazards of the procedure have been explained to the patient. She understands the risk involved and wants to proceed as planned. Curt Hawthorne MD DR: MELIZA/martin JOB# [id number]
--- NOTE | 2018-06-16 14:26 | DIREP ---
PROCEDURE:XRAY HIP MIN 2VW-LT COMPARISON:None. INDICATIONS:post total left hip FINDINGS: BONES:No acute fracture or loose bone fragment. JOINTS:Left acetabular and femoral components and screw appear well seated and in good alignment. SOFT TISSUES:Postoperative air there are multiple skin karoline. OTHER:No additional findings. CONCLUSION:Postsurgical changes of recent left hip arthroplasty. Dictated by: Bella Jin MD on 06/16/2018 at 02:24 PM
--- NOTE | 2018-06-16 14:45 | NUR ---
arrival Pt ARRIVED TO THE UNIT IN ROOM 337 FROM OR, REPORT RECEIVED FROM OR NURSE MIKAEL RN. PT SLEEPY, OPENS EYES IN VERBAL STIMULI. INITIATED SPECIAL VS, OFFERED FLUIDS. ORIENTED Pt TO ROOM , CALL LIGHT, REENFORCED TO USE CALL LIGHT, Pt VERBALIZED UNDERSTANDING., CALL LIGHT WITHIN REACH, WILL CONTINUE TO MONITOR THE Pt.
[2018-06-16] MEDS: ULTRAM PO SCH ×2 (16:00→20:00)
[2018-06-16] MEDS: ULTRAM PO PRN ×3 (16:11→23:52)
[2018-06-16] MEDS: TYLENOL PO SCH ×2 (16:12→23:53)
--- NOTE | 2018-06-16 17:39 | OPH ---
DATE OF SURGERY: 06/16/2018 PREOPERATIVE DIAGNOSIS: Osteoarthritis of the left hip. POSTOPERATIVE DIAGNOSIS: Osteoarthritis of the left hip. OPERATIVE PROCEDURE: Left total hip arthroplasty using Medacta AMIS size 52 Versafitcup with a superior 6.5 mm screw. The stem is AMIS size 2 cemented stem. The head is a 36 mm ceramic head, making it a ceramic on polyethylene left total hip arthroplasty. SURGEON: Curt Hawthorne MD ANESTHESIA: General endotracheal. BLOOD LOSS: 500 mL. DRAINS: None. DESCRIPTION OF INDICATIONS: A 67-year-old female with a several-year history of pain about the left hip secondary to OA. She takes tramadol, Tylenol No. 3 and Mobic for the pain. She complains of pain with just household ambulation as well as limping and giving way. X-rays show that she is circumferentially [id number] about the left hip and was admitted today for left total hip replacement. DESCRIPTION OF PROCEDURE: This patient was placed on the operating table in the supine position. General endotracheal anesthetic was induced without difficulty. The patient had the left foot and ankle well padded with cast padding and then placed in the traction boot. The traction boot was padded with a piece of egg crate mattress. Left lower extremity was then attached to the traction unit. The patient then had the left lower extremity sterilely prepped and draped. An anterior incision was made about the hip. Incision was taken through the skin and the subcutaneous tissues. The IT band was opened in line with the skin incision. The muscle belly was retracted laterally. The rectus fascia was opened and the rectus muscle was retracted medially. The circumflex vessels were identified and coagulated with the Aquamantys device. The patient had the capsule opened and retracted proximally and laterally. Femoral neck cut was then made with the power saw. The canal was opened with a curette later in the case. The acetabulum was exposed with the acetabular retractors. The labrum was excised and the fovea was cleared of any soft tissue. The bleeding was controlled with the Aquamantys. The patient's hip was then sequentially reamed up to a 52. The 52 trial had a good fit. The patient then had the 52 acetabular component impacted into position. A single screw was placed superiorly and posteriorly. The trial liner was then placed inside the acetabular component. The posterior ligaments were then released. The hip was placed in maximal external rotation as well as hyperextension. The canal again was opened with a curette. The starter rasp was used to open the canal proximally. The patient then had the proximal femur was sequentially rasped up to a size 2. Trial reduction was initially done with a medium neck length and then subsequently with a short neck length. With the short neck length, there was good stability. The patient radiographically had stable leg lengths in acceptable alignment and sizing of the components. The patient then had the trial components removed. The canal was cleared with the canal brush. A small cement restrictor was placed at 11 cm below the femoral neck cut. The canal again was irrigated with the irrigating brush and then the suction drying device was placed down the proximal femoral canal. The cement was then introduced into the proximal femur and a size 2 Medacta stem was then cemented into position. The patient then had the excess cement removed. Once this cement had hardened, we did a trial reduction with a short neck and the 36 mm head. There was good stability and good leg length. The trial femoral head was removed. A size 36 ceramic head was then impacted onto the Mukherjee taper neck. Again, the hip was reduced. There was good stability clinically as well as radiographically. The patient then had the wounds irrigated for 3 minutes with Betadine-containing solution. The capsule was closed with a #2 PDS in an interrupted manner. The IT band was closed with a #2 barbed PDS in a running manner. The subcutaneous was closed with 2-0 Monocryl barbed in a running manner and the skin was closed with karoline. A Prevena type dressing was applied. The patient was extubated in the operating room, sent to recovery in stable condition. Curt Hawthorne MD DR: MELIZA/martin JOB# [id number]
[2018-06-16 18:09] LABS: HEMOGLOBIN 12.5 g/dL (12.0-15.0); MEAN CELL HGB 33.2 pg (26-34); MEAN CELL HGB CONCENTRATION 33.2 g/dL (33-37); MEAN PLATELET VOLUME 9.2 fL (7.8-11.0); RED CELL DISTRIBUTION WIDTH 13.7 % (11.5-14.5); WHITE BLOOD CELL 13.8 10^3/uL (4.5-11.0)
--- NOTE | 2018-06-16 18:30 | NUR ---
BEDSIDE REPORT BEDSIDE REPORT GIVEN TO THE NIGHT NURSE CHARIS CID
--- NOTE | 2018-06-16 18:31 | PRM.PN ---
Subjective Subjective Date: Jun 16, 2018 Time: 18:30 Subjective Awake and alert VSS Pain ok HGB 12 Stable Patient History: Bone cancer 33 FATHER, , Age:69 FH: lung cancer 33 FATHER, , Age:71 Hypertension 32 MOTHER, , Age:90 No known health problems G8 BROTHER G8 BROTHER 19 CHILD 19 CHILD 19 CHILD No Family History of: Alzheimer's disease Asthma Cerebrovascular disorder Chronic obstructive pulmonary disease Congestive heart failure Diabetes insipidus Diabetes mellitus Parkinson's disease VTE VTE Risk Total Score: 2 VTE Risk Score VTE Risk: Score 0-1 = Low Risk (Aggressive mobilization; early ambulation; no VTE prophylaxis required) Score 2: Moderate Risk (Intermittent/Pneumatic Compression Device OR Lovenox/Heparin/Coumadin) Score 3-4: High Risk (Intermittent/Pneumatic Compression Device AND Lovenox/Heparin/Coumadin) Score > or =5: Highest Risk (Intermittent/Pneumatic Compression Device AND Lovenox/Heparin/Coumadin) Review of Systems Musculoskeletal: leg pain Allergies: Coded Allergies: No Known Allergies (Unverified , 06/11/18) Scheduled Amlodipine Besylate/Benazepril (Lotrel 5-40 Mg Capsule), 1 CAP PO DAILY, ( Reported) Atorvastatin 10MG (Lipitor 10MG), 1 TAB PO HS, (Reported) Hydrochlorothiazide (Hydrochlorothiazide), 1 CAP PO DAILY, (Reported) Meloxicam (Meloxicam), 1 TAB PO DAILY, (Reported) Paroxetine Hcl (Paroxetine Hcl), 1 TAB PO HS, (Reported) Scheduled PRN Tramadol Hcl (Tramadol Hcl), 1 TAB PO BID PRN for PAIN, (Reported) Discontinued Medications Aspirin (Aspirin), 325 MG PO BID Discontinued Reason: No Longer Taking Tramadol Hcl (Tramadol Hcl), 1-2 TAB PO Q6HR Discontinued Reason: No Longer Taking Objective Vitals and I/O Vital Sign - Last 24 Hours 06/16/18 06/16/18 06/16/18 06/16/18 08:54 09:50 09:59 10:01 Pulse 83 74 72 Resp B/P (MAP) 144/84 (104) 124/66 (85) 110/62 (78) Pulse Ox 98 99 99 O2 Delivery Room Air Nasal Canula Nasal Canula Nasal Canula O2 Flow Rate 2 2 2 11/12/2706/16/18 06/16/18 06/16/18 13:34 13:34 13:49 14:04 Temp 100.2 100.7 100.3 100.2 100.7 100.3 Pulse 83 87 88 Resp 18 18 18 B/P (MAP) 165/83 (110) 179/92 (121) 145/74 (97) Pulse Ox 100 100 100 O2 Delivery Non-Rebreather Non-Rebreather Non-Rebreather O2 Flow Rate 15 15 10 5 06/16/18 06/16/18 06/16/18 06/16/18 14:19 14:34 15:00 15:00 Temp 98.9 98.9 99.0 98.9 98.9 99.0 Pulse 88 87 Resp 18 18 20 B/P (MAP) 158/81 (106) 146/70 (95) 148/77 (100) Pulse Ox 94 95 96 O2 Delivery Nasal Canula Nasal Canula Nasal Canula Nasal Cannula O2 Flow Rate 3.5 3.5 3.50 3.50 06/16/18 15:56 Pulse 81 Resp 16 Pulse Ox 97 O2 Delivery Nasal Cannula O2 Flow Rate 2.00 FiO2 28 Course Sepsis Screening Results: Posi: NEGATIVE Sepsis Qualifier/Stage: NO DEFINITE RISK Vitals & review Data Vital Sign - Last 24 Hours 06/16/18 06/16/18 06/16/18 06/16/18 08:54 09:50 09:59 10:01 Pulse 83 74 72 Resp 18 18 18 B/P (MAP) 144/84 (104) 124/66 (85) 110/62 (78) Pulse Ox 98 99 99 O2 Delivery Room Air Nasal Canula Nasal Canula Nasal Canula O2 Flow Rate 2 2 2 06/16/18 06/16/18 06/16/18 06/16/18 13:34 13:34 13:49 14:04 Temp 100.2 100.7 100.3 100.2 100.7 100.3 Pulse 83 87 88 Resp 18 18 18 B/P (MAP) 165/83 (110) 179/92 (121) 145/74 (97) Pulse Ox 100 100 100 O2 Delivery Non-Rebreather Non-Rebreather Non-Rebreather O2 Flow Rate 15 15 10 5 06/16/18 06/16/18 06/16/18 06/16/18 14:19 14:34 15:00 15:00 Temp 98.9 98.9 99.0 98.9 98.9 99.0 Pulse 88 87 Resp 18 18 20 B/P (MAP) 158/81 (106) 146/70 (95) 148/77 (100) Pulse Ox 94 95 96 O2 Delivery Nasal Canula Nasal Canula Nasal Canula Nasal Cannula O2 Flow Rate 3.5 3.5 3.50 3.50 06/16/18 15:56 Pulse 81 Resp 16 Pulse Ox 97 O2 Delivery Nasal Cannula O2 Flow Rate 2.00 FiO2 28 Laboratory Tests Test 06/16/18 18:03 White Blood Count 13.8 10^3/uL Red Blood Count 3.76 10^6/uL Hemoglobin 12.5 g/dL Hematocrit 37.6 % Mean Corpuscular Volume 100.0 fL Mean Corpuscular Hemoglobin 33.2 pg Mean Corpuscular Hemoglobin Concent 33.2 g/dL Red Cell Distribution Width 13.7 % Platelet Count 323 10^3/uL Mean Platelet Volume 9.2 fL Current Medications Medications (Trade) Dose Ordered Sig/Mahin PRN Reason Start Time Stop Time Status Last Admin Acetaminophen (Tylenol) 1,000 mg Q6H 06/16/18 16:00 07/16/18 15:59 06/16/18 16:12 Cefazolin Sodium/ Dextrose 50 ml @ 100 mls/hr Q8 06/16/18 22:00 06/17/18 14:29 Celecoxib (Celebrex) 200 mg BID 06/16/18 21:00 07/16/18 20:59 Celecoxib (Celebrex) 200 mg Q12HR 06/16/18 21:00 06/16/18 21:01 Diphenhydramine HCl (Benadryl) 25 mg Q5MIN PRN NAUSEA / VOMITING 06/16/18 10:00 06/21/18 09:59 Docusate Sodium (Colace) 100 mg DAILY 06/17/18 09:00 07/17/18 08:59 Famotidine (Pepcid) 20 mg DAILY 06/17/18 09:00 07/17/18 08:59 Fentanyl Citrate (Sublimaze) 12.5 mcg Q5MIN PRN PAIN 06/16/18 10:00 06/17/18 09:59 Gabapentin (Neurontin) 400 mg Q24HRS 06/17/18 10:00 06/17/18 10:01 Hydromorphone HCl (Dilaudid) 0.2 mg Q5MIN PRN PAIN MILD 06/16/18 10:00 06/17/18 09:59 Meperidine HCl (Demerol) 12.5 mg Q5MIN PRN SHIVERING 06/16/18 10:00 07/16/18 09:59 06/16/18 13:57 Morphine Sulfate (Morphine Sulfate) 3 mg Q4H PRN PAIN 06/16/18 14:00 07/16/18 13:59 Promethazine HCl (Phenergan) 6.25 mg PRN PRN NAUSEA / VOMITING 06/16/18 10:00 06/21/18 09:59 06/16/18 13:55 Rivaroxaban (Xarelto) 10 mg DAILY 06/17/18 09:00 07/17/18 08:59 Throat Lozenges (Cepacol Sore Throat Lozenge) 1 each PRN PRN SORE THROAT 06/16/18 14:00 07/16/18 13:59 Tramadol HCl (Ultram) 50 mg Q4HR 06/16/18 16:00 07/16/18 15:59 Tramadol HCl (Ultram) 100 mg Q4HR PRN SEVERE PAIN 06/16/18 14:00 07/16/18 13:59 06/16/18 16:11 BROOKS LEONARDO MD Jun 16, 2018 18:31
[2018-06-16] MEDS: CELEBREX PO SCH (20:32)
[2018-06-16] MEDS: ANCEF 2 GM/D5W 50ML 50 ML IV SCH (22:02)
[2018-06-16] MEDS: PAXIL PO SCH (23:52)
[2018-06-17 01:07] VITALS: BP 127/73
[2018-06-17] MEDS ORDERED: ULTRAM ONE ×2 (04:00→08:55)
[2018-06-17] MEDS: ULTRAM PO SCH ×6 (04:00→20:00)
[2018-06-17] MEDS: ULTRAM PO PRN ×5 (04:04→21:05)
[2018-06-17 04:15] VITALS: BP 130/79
[2018-06-17 05:13] LABS: HEMOGLOBIN 10.9 g/dL (12.0-15.0); MEAN CELL HGB 32.5 pg (26-34); MEAN CELL HGB CONCENTRATION 32.2 g/dL (33-37); MEAN CORP VOLUME 100.9 fL (78-100); MEAN PLATELET VOLUME 9.6 fL (7.8-11.0); RED CELL DISTRIBUTION WIDTH 13.7 % (11.5-14.5); WHITE BLOOD CELL 11.6 10^3/uL (4.5-11.0)
[2018-06-17] MEDS: LACTATED RINGERS 1,000 ML IV SCH ×2 (06:00→16:00)
[2018-06-17] MEDS: TYLENOL PO SCH ×3 (06:22→12:00)
[2018-06-17] MEDS: ANCEF 2 GM/D5W 50ML 50 ML IV SCH ×2 (06:23→13:46)
--- NOTE | 2018-06-17 07:10 | NUR ---
REPORT REPORT RECEIVED FROM TRANSPORTATION MAINTENANCE WORKER
[2018-06-17] MEDS ORDERED: PEPCID ONE (07:50)
[2018-06-17] MEDS ORDERED: NEURONTIN ONE (07:50)
[2018-06-17] MEDS ORDERED: HYDROCHLOROTHIAZIDE ONE (07:51)
[2018-06-17] MEDS ORDERED: COLACE PO ONE (07:51)
[2018-06-17] MEDS ORDERED: XARELTO ONE (07:52)
[2018-06-17] MEDS: CELEBREX PO SCH ×2 (09:00→21:06)
[2018-06-17] MEDS: HYDROCHLOROTHIAZIDE PO SCH (09:06)
[2018-06-17] MEDS: LOTENSIN PO SCH (09:06)
[2018-06-17] MEDS: XARELTO PO SCH (09:07)
[2018-06-17] MEDS: COLACE PO SCH (09:07)
[2018-06-17] MEDS: PEPCID PO SCH (09:07)
[2018-06-17] MEDS: NORVASC PO SCH (09:07)
--- NOTE | 2018-06-17 09:10 | NUR ---
Post-op day 1 follow up post fascia iliaca block. Pt v/s stable. Pt currently sitting up in bed. Pt states she had a little soreness during the night but no real pain until about 0500 this am. Pt states no questions or concerns.
[2018-06-17] MEDS ORDERED: NEURONTIN PO SCH (10:00)
[2018-06-17 10:08] VITALS: BP 135/69
--- NOTE | 2018-06-17 10:12 | NUR ---
STATUS PT SITTING IN RECLINER AT THIS TIME. PT STATES PAIN IS 4 OUT OF 10. PT AMBULATED 400FT WITH PHYSICAL THERAPY. FAMILY AT BEDSIDE, NO OTHER NEEDS NOTED AT THIS TIME. CALL LIGHT IN REACH.
--- NOTE | 2018-06-17 10:31 | PRM.PN ---
Subjective Subjective Date: Jun 17, 2018 Time: 10:30 Subjective Pain ok Ambulatory in [place] VSS HGB 10.9 postop anemia expected Cont with PT DC sharda Patient History: Bone cancer 33 FATHER, , Age:71 FH: lung cancer 33 FATHER, , Age:71 Hypertension 32 MOTHER, , Age:90 No known health problems G8 BROTHER G8 BROTHER 19 CHILD 19 CHILD 19 CHILD No Family History of: Alzheimer's disease Asthma Cerebrovascular disorder Chronic obstructive pulmonary disease Congestive heart failure Diabetes insipidus Diabetes mellitus Parkinson's disease VTE VTE Risk Total Score: 2 VTE Risk Score VTE Risk: Score 0-1 = Low Risk (Aggressive mobilization; early ambulation; no VTE prophylaxis required) Score 2: Moderate Risk (Intermittent/Pneumatic Compression Device OR Lovenox/Heparin/Coumadin) Score 3-4: High Risk (Intermittent/Pneumatic Compression Device AND Lovenox/Heparin/Coumadin) Score > or =5: Highest Risk (Intermittent/Pneumatic Compression Device AND Lovenox/Heparin/Coumadin) Review of Systems Musculoskeletal: leg pain Allergies: Coded Allergies: No Known Allergies (Unverified , 06/11/18) Scheduled Amlodipine Besylate/Benazepril (Lotrel 5-40 Mg Capsule), 1 CAP PO DAILY, ( Reported) Atorvastatin 10MG (Lipitor 10MG), 1 TAB PO HS, (Reported) Hydrochlorothiazide (Hydrochlorothiazide), 1 CAP PO DAILY, (Reported) Meloxicam (Meloxicam), 1 TAB PO DAILY, (Reported) Paroxetine Hcl (Paroxetine Hcl), 1 TAB PO HS, (Reported) Scheduled PRN Tramadol Hcl (Tramadol Hcl), 1 TAB PO BID PRN for PAIN, (Reported) Discontinued Medications Aspirin (Aspirin), 325 MG PO BID Discontinued Reason: No Longer Taking Tramadol Hcl (Tramadol Hcl), 1-2 TAB PO Q6HR Discontinued Reason: No Longer Taking Objective Vitals and I/O Vital Sign - Last 24 Hours 06/16/18 06/16/18 06/16/18 06/16/18 13:34 13:34 13:49 14:04 Temp 100.2 100.7 100.3 100.2 100.7 100.3 Pulse 83 87 88 Resp B/P (MAP) 165/83 (110) 179/92 (121) 145/74 (97) Pulse Ox 100 100 100 O2 Delivery Non-Rebreather Non-Rebreather Non-Rebreather O2 Flow Rate 15 15 10 5 06/16/18 06/16/18 06/16/18 06/16/18 14:19 14:34 15:00 15:00 Temp 98.9 98.9 99.0 98.9 98.9 99.0 Pulse 88 87 Resp 18 18 20 B/P (MAP) 158/81 (106) 146/70 (95) 148/77 (100) Pulse Ox 94 95 96 O2 Delivery Nasal Canula Nasal Canula Nasal Canula Nasal Cannula O2 Flow Rate 3.5 3.5 3.50 3.50 06/16/18 06/16/18 06/16/18 06/16/18 15:56 19:45 22:25 22:30 Temp 98.5 98.5 Pulse 81 82 82 Resp 16 18 16 B/P (MAP) 136/74 (94) Pulse Ox 97 97 97 O2 Delivery Nasal Cannula Nasal Canula Nasal Cannula Nasal Cannula O2 Flow Rate 2.00 2.00 2.00 FiO2 28 06/17/18 06/17/18 06/17/18 06/17/18 01:07 04:15 09:06 09:06 Temp 97.7 98.7 97.7 98.7 Pulse 76 73 Resp 18 18 B/P (MAP) 127/73 (91) 130/79 (96) 130/79 130/79 Pulse Ox 96 95 O2 Delivery Nasal Canula Nasal Canula O2 Flow Rate 2.00 2.00 06/17/18 06/17/18 06/17/18 09:07 10:08 10:12 Temp 98.7 98.7 Pulse 73 82 Resp 17 B/P (MAP) 130/79 135/69 (91) Pulse Ox 93 O2 Delivery Room Air Nasal Cannula Intake and Output 06/16/18 06/16/18 06/17/18 15:00 23:00 07:00 Intake Total 6050 ml 240 ml 400 ml Output Total 430 ml 100 ml 1050 ml Balance 5620 ml 140 ml -650 ml Course Sepsis Screening Results: Posi: NEGATIVE Sepsis Qualifier/Stage: NO DEFINITE RISK Vitals & review Data Vital Sign - Last 24 Hours 11/5/18 11/5/18 11/5/18 11/5/18 08:54 09:50 09:59 10:01 Pulse 83 74 72 Resp 18 18 18 B/P (MAP) 144/84 (104) 124/66 (85) 110/62 (78) Pulse Ox 98 99 99 O2 Delivery Room Air Nasal Canula Nasal Canula Nasal Canula O2 Flow Rate 2 2 2 06/16/18 06/16/18 06/16/18 06/16/18 13:34 13:34 13:49 14:04 Temp 100.2 100.7 100.3 100.2 100.7 100.3 Pulse 83 87 88 Resp 18 18 18 B/P (MAP) 165/83 (110) 179/92 (121) 145/74 (97) Pulse Ox 100 100 100 O2 Delivery Non-Rebreather Non-Rebreather Non-Rebreather O2 Flow Rate 15 15 10 5 06/16/18 06/16/18 06/16/18 06/16/18 14:19 14:34 15:00 15:00 Temp 98.9 98.9 99.0 98.9 98.9 99.0 Pulse 88 87 Resp 18 18 20 B/P (MAP) 158/81 (106) 146/70 (95) 148/77 (100) Pulse Ox 94 95 96 O2 Delivery Nasal Canula Nasal Canula Nasal Canula Nasal Cannula O2 Flow Rate 3.5 3.5 3.50 3.50 06/16/18 15:56 Pulse 81 Resp 16 Pulse Ox 97 O2 Delivery Nasal Cannula O2 Flow Rate 2.00 FiO2 28 Laboratory Tests Test 06/16/18 18:03 White Blood Count 13.8 10^3/uL Red Blood Count 3.76 10^6/uL Hemoglobin 12.5 g/dL Hematocrit 37.6 % Mean Corpuscular Volume 100.0 fL Mean Corpuscular Hemoglobin 33.2 pg Mean Corpuscular Hemoglobin Concent 33.2 g/dL Red Cell Distribution Width 13.7 % Platelet Count 323 10^3/uL Mean Platelet Volume 9.2 fL Current Medications Medications (Trade) Dose Ordered Sig/Mahin PRN Reason Start Time Stop Time Status Last Admin Acetaminophen (Tylenol) 1,000 mg Q6H 06/16/18 16:00 07/16/18 15:59 06/16/18 16:12 Cefazolin Sodium/ Dextrose 50 ml @ 100 mls/hr Q8 06/16/18 22:00 06/17/18 14:29 Celecoxib (Celebrex) 200 mg BID 06/16/18 21:00 07/16/18 20:59 Celecoxib (Celebrex) 200 mg Q12HR 06/16/18 21:00 06/16/18 21:01 Diphenhydramine HCl (Benadryl) 25 mg Q5MIN PRN NAUSEA / VOMITING 06/16/18 10:00 06/21/18 09:59 Docusate Sodium (Colace) 100 mg DAILY 06/17/18 09:00 07/17/18 08:59 Famotidine (Pepcid) 20 mg DAILY 06/17/18 09:00 07/17/18 08:59 Fentanyl Citrate (Sublimaze) 12.5 mcg Q5MIN PRN PAIN 06/16/18 10:00 06/17/18 09:59 Gabapentin (Neurontin) 400 mg Q24HRS 06/17/18 10:00 06/17/18 10:01 Hydromorphone HCl (Dilaudid) 0.2 mg Q5MIN PRN PAIN MILD 06/16/18 10:00 06/17/18 09:59 Meperidine HCl (Demerol) 12.5 mg Q5MIN PRN SHIVERING 06/16/18 10:00 07/16/18 09:59 06/16/18 13:57 Morphine Sulfate (Morphine Sulfate) 3 mg Q4H PRN PAIN 06/16/18 14:00 07/16/18 13:59 Promethazine HCl (Phenergan) 6.25 mg PRN PRN NAUSEA / VOMITING 06/16/18 10:00 06/21/18 09:59 06/16/18 13:55 Rivaroxaban (Xarelto) 10 mg DAILY 06/17/18 09:00 07/17/18 08:59 Throat Lozenges (Cepacol Sore Throat Lozenge) 1 each PRN PRN SORE THROAT 06/16/18 14:00 07/16/18 13:59 Tramadol HCl (Ultram) 50 mg Q4HR 06/16/18 16:00 07/16/18 15:59 Tramadol HCl (Ultram) 100 mg Q4HR PRN SEVERE PAIN 06/16/18 14:00 07/16/18 13:59 06/16/18 16:11 BROOKS LEONARDO MD Jun 17, 2018 10:31
--- NOTE | 2018-06-17 11:15 | NUR ---
DISCHARGE PLAN CM VISITED WITH PATIENT AND PATIENT'S DAUGHTER REGARDING DISCHARGE PLAN AND NEEDS. PATIENT LIVES AT HOME ALONE. SHE IS VERY ACTIVE AND INDEPENDENT WITH ADL'S. SHE HAS ALL DME IN PLACE FROM HER LAST HIP SURGERY. PATIENT DENIES NEED FOR ANY HOME HEALTH OR SNF PLACEMENT AND STATES SHE WILL BE STAYING IN [place] WITH HER CHILDREN FOR 3 WEEKS UNTIL WHILE SHE IS HEALING. DISCHARGE GOAL IS TO DISCHARGE HOME WITH HER ADULT CHILDREN IN [place] THEN CONTINUE WITH ROUTINE SELF CARE. CM DEPT WILL CONTINUE TO MONITOR DISCHARGE NEEDS.
[2018-06-17 13:11] VITALS: BP 116/65
--- NOTE | 2018-06-17 16:37 | NUR ---
DISCHARGE PLAN UPDATE/[facility] AILYN MORGAN RN @ [facility] CONTACTED DEPT STATING PATIENT CONTACTED THEM REQUESTING HOME HEALTH SERVICES. REFERRAL FAXED. CM DEPT WILL CONTINUE TO MONITOR DISCHARGE NEEDS.
[2018-06-17 16:56] VITALS: BP 124/78
[2018-06-17 19:38] VITALS: BP 120/59
[2018-06-17] MEDS ORDERED: PAXIL PO SCH (21:00)
[2018-06-17] MEDS ORDERED: LIPITOR PO SCH (21:00)
[2018-06-17] MEDS: PAXIL PO SCH (21:05)
[2018-06-18] MEDS: TYLENOL PO SCH ×3 (01:11→06:24)
[2018-06-18] MEDS: ULTRAM PO PRN ×3 (01:11→08:54)
[2018-06-18 01:41] VITALS: BP 126/67
[2018-06-18] MEDS: LACTATED RINGERS 1,000 ML IV SCH (02:00)
[2018-06-18] MEDS: ULTRAM PO SCH ×3 (04:00→06:57)
[2018-06-18 05:36] LABS: HEMOGLOBIN 12.1 g/dL (12.0-15.0); MEAN CELL HGB 32.7 pg (26-34); MEAN CELL HGB CONCENTRATION 32.5 g/dL (33-37); MEAN CORP VOLUME 100.5 fL (78-100); MEAN PLATELET VOLUME 9.3 fL (7.8-11.0); RED CELL DISTRIBUTION WIDTH 13.9 % (11.5-14.5); WHITE BLOOD CELL 11.7 10^3/uL (4.5-11.0)
[2018-06-18 05:49] VITALS: BP 140/84
[2018-06-18 07:56] VITALS: BP 138/77
--- NOTE | 2018-06-18 08:33 | PRM.PN ---
Subjective Subjective Date: Jun 18, 2018 Time: 08:32 Subjective Pain ok Independent with PT VSS HGB 12 Dressing dry Will dc to home Patient History: Bone cancer 33 FATHER, , Age:69 FH: lung cancer 33 FATHER, , Age:71 Hypertension 32 MOTHER, , Age:90 No known health problems G8 BROTHER G8 BROTHER 19 CHILD 19 CHILD 19 CHILD No Family History of: Alzheimer's disease Asthma Cerebrovascular disorder Chronic obstructive pulmonary disease Congestive heart failure Diabetes insipidus Diabetes mellitus Parkinson's disease VTE VTE Risk Total Score: 2 VTE Risk Score VTE Risk: Score 0-1 = Low Risk (Aggressive mobilization; early ambulation; no VTE prophylaxis required) Score 2: Moderate Risk (Intermittent/Pneumatic Compression Device OR Lovenox/Heparin/Coumadin) Score 3-4: High Risk (Intermittent/Pneumatic Compression Device AND Lovenox/Heparin/Coumadin) Score > or =5: Highest Risk (Intermittent/Pneumatic Compression Device AND Lovenox/Heparin/Coumadin) Review of Systems Musculoskeletal: leg pain Allergies: Coded Allergies: No Known Allergies (Unverified , 06/11/18) Scheduled Amlodipine Besylate/Benazepril (Lotrel 5-40 Mg Capsule), 1 CAP PO DAILY, ( Reported) Atorvastatin 10MG (Lipitor 10MG), 1 TAB PO HS, (Reported) Hydrochlorothiazide (Hydrochlorothiazide), 1 CAP PO DAILY, (Reported) Meloxicam (Meloxicam), 1 TAB PO DAILY, (Reported) Paroxetine Hcl (Paroxetine Hcl), 1 TAB PO HS, (Reported) Scheduled PRN Tramadol Hcl (Tramadol Hcl), 1 TAB PO BID PRN for PAIN, (Reported) Discontinued Medications Aspirin (Aspirin), 325 MG PO BID Discontinued Reason: No Longer Taking Tramadol Hcl (Tramadol Hcl), 1-2 TAB PO Q6HR Discontinued Reason: No Longer Taking Objective Vitals and I/O Vital Sign - Last 24 Hours 06/17/18 06/17/18 06/17/18 06/17/18 09:06 09:06 09:07 10:08 Temp 98.7 98.7 Pulse 73 82 Resp 17 B/P (MAP) 130/79 130/79 130/79 135/69 (91) Pulse Ox 93 O2 Delivery Room Air 06/17/18 06/17/18 06/17/18 06/17/18 10:12 10:32 10:34 13:11 Temp 97.5 97.5 Pulse 70 Resp 16 18 B/P (MAP) 116/65 (82) Pulse Ox 92 95 O2 Delivery Nasal Cannula Room Air Room Air 06/17/18 06/17/18 06/17/18 06/18/18 16:56 19:38 21:01 01:41 Temp 97.9 98.4 98.6 97.9 98.4 98.6 Pulse 68 62 75 69 Resp 18 18 18 18 B/P (MAP) 124/78 (93) 120/59 (79) 126/67 (86) Pulse Ox 90 90 91 91 O2 Delivery Room Air Room Air 06/18/18 06/18/18 06/18/18 02:42 05:49 07:56 Temp 98.3 98.0 98.3 98.0 Pulse 75 70 Resp 18 20 B/P (MAP) 140/84 (102) 138/77 (97) Pulse Ox 88 90 O2 Delivery Nasal Cannula Room Air Intake and Output 06/17/18 06/17/18 06/18/18 15:00 23:00 07:00 Intake Total 1050 ml 500 ml Output Total 1000 ml 1550 ml Balance 50 ml -1050 ml Course Sepsis Screening Results: Posi: NEGATIVE Sepsis Qualifier/Stage: NO DEFINITE RISK Vitals & review Data Vital Sign - Last 24 Hours 06/16/18 06/16/18 06/16/18 06/16/18 08:54 09:50 09:59 10:01 Pulse 83 74 72 Resp 18 18 18 B/P (MAP) 144/84 (104) 124/66 (85) 110/62 (78) Pulse Ox 98 99 99 O2 Delivery Room Air Nasal Canula Nasal Canula Nasal Canula O2 Flow Rate 2 2 2 06/16/18 06/16/18 06/16/18 06/16/18 13:34 13:34 13:49 14:04 Temp 100.2 100.7 100.3 100.2 100.7 100.3 Pulse 83 87 88 Resp 18 18 18 B/P (MAP) 165/83 (110) 179/92 (121) 145/74 (97) Pulse Ox 100 100 100 O2 Delivery Non-Rebreather Non-Rebreather Non-Rebreather O2 Flow Rate 15 15 10 5 06/16/18 06/16/18 06/16/18 06/16/18 14:19 14:34 15:00 15:00 Temp 98.9 98.9 99.0 98.9 98.9 99.0 Pulse 88 87 Resp 18 18 20 B/P (MAP) 158/81 (106) 146/70 (95) 148/77 (100) Pulse Ox 94 95 96 O2 Delivery Nasal Canula Nasal Canula Nasal Canula Nasal Cannula O2 Flow Rate 3.5 3.5 3.50 3.50 06/16/18 15:56 Pulse 81 Resp 16 Pulse Ox 97 O2 Delivery Nasal Cannula O2 Flow Rate 2.00 FiO2 28 Laboratory Tests Test 06/16/18 18:03 White Blood Count 13.8 10^3/uL Red Blood Count 3.76 10^6/uL Hemoglobin 12.5 g/dL Hematocrit 37.6 % Mean Corpuscular Volume 100.0 fL Mean Corpuscular Hemoglobin 33.2 pg Mean Corpuscular Hemoglobin Concent 33.2 g/dL Red Cell Distribution Width 13.7 % Platelet Count 323 10^3/uL Mean Platelet Volume 9.2 fL Current Medications Medications (Trade) Dose Ordered Sig/Mahin PRN Reason Start Time Stop Time Status Last Admin Acetaminophen (Tylenol) 1,000 mg Q6H 06/16/18 16:00 07/16/18 15:59 06/16/18 16:12 Cefazolin Sodium/ Dextrose 50 ml @ 100 mls/hr Q8 06/16/18 22:00 06/17/18 14:29 Celecoxib (Celebrex) 200 mg BID 06/16/18 21:00 07/16/18 20:59 Celecoxib (Celebrex) 200 mg Q12HR 06/16/18 21:00 06/16/18 21:01 Diphenhydramine HCl (Benadryl) 25 mg Q5MIN PRN NAUSEA / VOMITING 06/16/18 10:00 06/21/18 09:59 Docusate Sodium (Colace) 100 mg DAILY 06/17/18 09:00 07/17/18 08:59 Famotidine (Pepcid) 20 mg DAILY 06/17/18 09:00 07/17/18 08:59 Fentanyl Citrate (Sublimaze) 12.5 mcg Q5MIN PRN PAIN 06/16/18 10:00 06/17/18 09:59 Gabapentin (Neurontin) 400 mg Q24HRS 06/17/18 10:00 06/17/18 10:01 Hydromorphone HCl (Dilaudid) 0.2 mg Q5MIN PRN PAIN MILD 06/16/18 10:00 06/17/18 09:59 Meperidine HCl (Demerol) 12.5 mg Q5MIN PRN SHIVERING 06/16/18 10:00 07/16/18 09:59 06/16/18 13:57 Morphine Sulfate (Morphine Sulfate) 3 mg Q4H PRN PAIN 06/16/18 14:00 07/16/18 13:59 Promethazine HCl (Phenergan) 6.25 mg PRN PRN NAUSEA / VOMITING 06/16/18 10:00 06/21/18 09:59 06/16/18 13:55 Rivaroxaban (Xarelto) 10 mg DAILY 06/17/18 09:00 07/17/18 08:59 Throat Lozenges (Cepacol Sore Throat Lozenge) 1 each PRN PRN SORE THROAT 06/16/18 14:00 07/16/18 13:59 Tramadol HCl (Ultram) 50 mg Q4HR 06/16/18 16:00 07/16/18 15:59 Tramadol HCl (Ultram) 100 mg Q4HR PRN SEVERE PAIN 06/16/18 14:00 07/16/18 13:59 06/16/18 16:11 BROOKS LEONARDO MD Jun 18, 2018 08:33
[2018-06-18] MEDS: PEPCID PO SCH (08:53)
[2018-06-18] MEDS: CELEBREX PO SCH (08:53)
[2018-06-18] MEDS: XARELTO PO SCH (08:53)
[2018-06-18] MEDS: COLACE PO SCH (08:53)
[2018-06-18] MEDS: NORVASC PO SCH (08:55)
[2018-06-18] MEDS: LOTENSIN PO SCH (08:55)
[2018-06-18] MEDS: HYDROCHLOROTHIAZIDE PO SCH (08:55)
[2018-06-18 10:03] VITALS: BP 138/77
--- NOTE | 2018-06-18 10:07 | NUR ---
DISCHARGE IV D/C AND TIP INTACT, DISCHARGE EDUCATION GIVEN AND SON AND PT VERBALIZED UNDERSTANDING. PT LEFT VIA W/C TO PRIVATE AUTO. Addendum: 06/18/18 at 1010 by MICHELLE Rojas M/S RN Amended: Links added.
--- NOTE | 2018-06-18 20:31 | DSH ---
DATE OF DISCHARGE: 06/18/2018 ADMITTING DIAGNOSIS: Osteoarthritis of the left hip. OTHER DIAGNOSES: Include hyperlipidemia as well as hypertension. DISCHARGE DIAGNOSES: Osteoarthritis of the left hip plus postoperative anemia secondary to surgery expected. OPERATIVE PROCEDURE DATE: 06/18/2018. PROCEDURE PERFORMED: Left total hip arthroplasty. CONSULTATIONS: None. COMPLICATIONS: None. SUMMARY OF ADMISSION: The patient is a 67-year-old female with a several year history of pain about the left hip. She had pain at night as well as pain with household ambulation. The patient had failed conservative treatment. The x-rays show that she was circumferentially [id number] about the left hip. She was taken to the operating room on 06/16/2018 for left total hip arthroplasty. The patient postoperatively had a normal neurovascular exam. The patient has had daily physical therapy and occupational therapy. The patient on discharge can ambulate at least 100 feet with her walker, weightbearing as tolerated. She has been on Xarelto as well as foot pump, SCDs as well as early ambulation for DVT prophylaxis. The patient will be discharged today on 06/18/2018. She will be asked to use her walker and weightbear as tolerated. She can use tramadol for the pain. She will take aspirin 81 mg twice a day for a month for DVT prophylaxis. The patient will be seen back in my office in 1 week. She will be instructed to leave the Aquacel dressing or the Prevena dressing intact. Curt Hawthorne MD DR: MELIZA/martin JOB# [id number]
== END 2018-06-18 11:35 | disposition home health service (06) | DRG 470 ==
LOC: MS 00:06 → EDPENDDISTM 06-18 10:00
PROVIDERS: ADMIT Orthopaedic Surgery; ATTEND Orthopaedic Surgery
PROC: 0SRB049 Replacement of Left Hip Joint with Ceramic on Polyethylene Synthetic Substitute, Cemented, Open Approach (ICD-10-PCS; principal; 2018-06-16 10:44)
DX: M16.12 Unilateral primary osteoarthritis, left hip (principal); E78.5 Hyperlipidemia, unspecified; D64.9 Anemia, unspecified; F17.210 Nicotine dependence, cigarettes, uncomplicated; I10 Essential (primary) hypertension; Z90.710 Acquired absence of both cervix and uterus; Z96.641 Presence of right artificial hip joint; Z80.8 Family history of malignant neoplasm of other organs or systems; Z82.49 Family history of ischemic heart disease and other diseases of the circulatory system
CPT/HCPCS: 36415; 64447; 73502; 76000; 80053; 85025; 85027; 87070; 93005; 97161; 97165; A4217; A4338; J0330; J0690; J1100; J2001; J2175; J2250; J2270; J2405; J2550; J2710; J2795; J3010; J3490; J7050; J7120; 97110-GP; 97116-GP; C1776; G8978-CJ; G8979-CI; G8987; G8988; J8499